=== PATIENT | female | born 1960 | race Caucasian/White ===

== ENCOUNTER 2017-02-03 22:36 | Emergency (ER) | payer MEDICARE ==
[2010-05-15 12:19] VITALS: BMI 27.5
== END 2017-02-04 | disposition home or self-care (01) ==
LOC: D.ER 22:36
DX: M54.16 Radiculopathy, lumbar region (principal); F17.200 Nicotine dependence, unspecified, uncomplicated; G89.29 Other chronic pain

== ENCOUNTER 2017-06-19 17:02 | Emergency (ER) | payer MEDICARE ==
[2010-05-15 12:19] VITALS: BMI 27.5
== END 2017-06-19 18:20 | disposition home or self-care (01) ==
LOC: D.ER 17:02
DX: M54.5 Low back pain (principal); M54.16 Radiculopathy, lumbar region; G89.18 Other acute postprocedural pain; M79.652 Pain in left thigh; M79.651 Pain in right thigh; F17.200 Nicotine dependence, unspecified, uncomplicated

== ENCOUNTER 2020-02-16 11:45 | Emergency (ER) | payer MEDICARE, MEDICAID ==
[2020-02-16 11:58] VITALS: Ht 160 cm
[2020-02-16] MEDS ORDERED: PREDNISONE20 MG PO (12:23)
[2020-02-16 12:59] VITALS: BP 122/50
[2020-02-17] MEDS ORDERED: MEDROL DOSE PACK4 MG PO (15:18)
[2020-02-17] MEDS ORDERED: NEURONTIN 300300 MG PO (15:18)
== END 2020-02-16 12:59 | disposition home or self-care (01) ==
LOC: D.ER 11:45
DX: M54.5 Low back pain (principal); G89.29 Other chronic pain; I10 Essential (primary) hypertension

== ENCOUNTER 2020-02-17 13:16 | Emergency (ER) | payer MEDICARE, MEDICAID ==
[~2020-02-17] VITALS: Ht 160 cm; Wt 80.9 kg
[~2020-02-17 13:16] MED LIST: PREDNISONE20 MG PO
[2020-02-17 13:45] VITALS: Ht 160 cm; Wt 80.9 kg
[2020-02-17] MEDS ORDERED: NEURONTIN 300300 MG PO (15:18)
[2020-02-17] MEDS ORDERED: MEDROL DOSE PACK4 MG PO (15:18)
[2020-02-17 15:21] VITALS: BP 132/66
== END 2020-02-17 15:21 | disposition home or self-care (01) ==
LOC: D.ER 13:16
DX: G89.29 Other chronic pain (principal); Z76.5 Malingerer [conscious simulation]; M54.30 Sciatica, unspecified side; I10 Essential (primary) hypertension; Z72.0 Tobacco use

== ENCOUNTER 2020-02-27 17:25 | Observation (INO) | payer MEDICARE, MEDICAID ==
[~2020-02-27] VITALS: Ht 152.4 cm; Wt 79.5 kg
--- NOTE | ~2020-02-27 | HEMODYNAMI ---
PATIENT:CAROLA MEDEROS MEDICAL RECORD: [id number] : 60 LOCATION:[address] [id number] ADMISSION DATE: 02/27/20 Generatedon:02/28/202015:18 Patient name: CAROLA MEDEROS Patient #: [id number] : 1960 Date of study: 02/28/2020 Page: Of Hemodynamic Procedure Report Patient Data Patient Demographics Procedure consent was obtained First Name: CAROLA Gender: Female Last Name: ROSA M : 1960 Middle Initial: R Age: 60 year(s) Patient #: [id number] Race: Unknown SSN: [id number] Additional ID: [id number] Contact details Address: [address] [place] [address] street State: [place] City: [facility] Zip code: [address] Past Medical History Allergies: No known allergies Admission Admission Data Admission Date: 02/27/2020 Admission Time: 22:30 Arrival Date: 02/28/2020 Arrival Time: 0:00 Admit Source: Other Insurance Payor: Medicare, Room #: D.2120 Medicaid HIC #: [id number] Height (in.): 59.84 BSA: 1.76 (m2) Height (cm.): 152 BMI: 34.19 (kg/m2) Weight (lbs.): 174.17 Weight (kg.): 79 Lab Results Lab Result Date: 02/28/2020 Lab Result Time: 0:00 Biochemistry Name Units Result Min Max BUN mg/dl 22 --(----)-* 7 18 Creatinine mg/dl 1 --(--*-)-- 0.6 1.3 eGFR ml/min 60 *-(----)-- 90 120 NONAFRICAN CBC Name Units Result Min Max Hemoglobin g/dl 11.8 *-(----)-- 13.5 17.5 Procedure Procedure Types Cath Procedure Diagnostic Procedure C LHC w/Coronaries Sedation Charges Moderate Sedation up to 30 minutes PCI Procedure Coronary Stent Coronary Stent Initial Hemochron ACT Test Procedure Description Procedure Date Procedure Date: 02/28/2020 Procedure Start Time: 14:50 Procedure End Time: 15:15 Procedure Staff Name Function Robert Jacques MD Performing Physician Ruth Macedo RT Monitor Angelique Amezquita RN Nurse Sophia Fernando RT Scrub Procedure Data Cath Procedure Fluoroscopy Diagnostic fluoroscopy Total fluoroscopy Time: 5 time: 5 min min Diagnostic fluoroscopy Total fluoroscopy dose: 541 dose: 541 mGy mGy Contrast Material Contrast Material Type Amount (ml) Isovue 300 105 Entry Location Entry Primary Successful Side Size Upsize Upsize Entry Closure Succes sful Closure Location (Fr) 1 (Fr) 2 (Fr) Remarks Device Remarks Femoral Right 5 Fr 6 Fr artery Short Estimated blood loss: 10 ml Diagnostic catheters Device Type Used For End Catheter Placement MULTIPACK JL 4.0 5Fr Procedure catheter MULTIPACK 3DRC 5Fr Procedure catheter MULTIPACK Pigtail 5 Fr Ventriculography catheter Procedure Complications No complications Procedure Medications Medication Administration Route Dosage 0.9% NaCl I.V. 100 ml/hr Oxygen etCO2 Nasal cannula 2 l/min Lidocaine 2% added to field 20 Heparin Flush Bag added to field 2 bags (1000units/500ml NS) Versed I.V. 2 mg Fentanyl I.V. 50 mcg Versed I.V. 2 mg Fentanyl I.V. 50 mcg Ativan 2 mg Versed I.V. 2 mg Fentanyl I.V. 50 mcg Heparin Bolus I.V. 5000 units Integrilin (Bolus I.V. 7.3 ml 2mg/ml) Integrilin (Bolus wasted 2.7 ml 2mg/ml) Plavix P.O. 600 mg Hemodynamics Rest BSA: 1.76 (m2) HGB: 11.8 (g/dl) O2 Consumption: Estimated: 181.2 (ml/min) O2 Con sumption indexed: Estimated:102.95 (ml/min/m) Heart Rate: 92 (bpm) Pressure Samples Time Site Value (mmHg) Purpose Heart Use Rate(bpm) 14:56 LV 124/16,20 Snapshot 97 Gradients Valve Time Site Site Mean SEP/DFP Peak To Heart Use 1 2 (mmHg) (sec/min) Peak Rate (mmHg) (bpm) Aortic 14:56 LV AO 92 Snapshots Pre Cath Intra NCS Post Cath Vital Signs Time Heart Resp SPO2 etCO2 NIBP (mmHg) Rhythm Pain Sedation Rate (ipm) (%) (mmHg) Status Level (bpm) 14:44:15 91 11 100 26.9 Measuring NSR 0 (11) 10(A) , No pain 14:44:19 90 11 100 29.1 152/112(149) NSR 0 (11) 10(A) , No pain 14:48:47 98 13 96 32.8 135/116(132) NSR 0 (11) 10(A) , No pain 14:53:10 89 10 96 31.3 138/105(137) NSR 0 (11) 10(A) , No pain 14:57:34 91 12 98 49.3 134/87(113) NSR 0 (11) 10(A) , No pain 15:02:33 93 11 98 49.2 Measuring NSR 0 (11) 10(A) , No pain 15:03:24 93 10 99 45.5 115/87(104) NSR 0 (11) 10(A) , No pain 15:08:23 90 11 98 30.6 Measuring NSR 0 (11) 10(A) , No pain 15:08:35 86 13 99 30.6 123/85(101) NSR 0 (11) 10(A) , No pain 15:12:58 96 12 98 49.2 126/86(110) NSR 0 (11) 10(A) , No pain Medications Time Medication Route Dose Verified Delivered Reason Notes Effectiveness by by 14:41:42 Fentanyl I.V. 50 Robert Angelique for sedation mcg St Jerry Amezquita MD RN 14:42:22 Versed I.V. 2 mg Robert Angelique for sedation [facility] Jerry Amezquita MD RN 14:46:36 0.9% NaCl I.V. 100 Robert Angelique used for ml/hr [facility] Jerry Amezquita procedure MD GRIGGS 14:46:41 Oxygen etCO2 2 Robert Angelique used for Nasal l/min [facility] Jerry Amezquita procedure cannula MD GRIGGS 14:46:46 Lidocaine 2% added 20ml Robert Jones for local to vial [facility] anesthetic field MD WOODS 14:46:50 Heparin Flush added 2 Robert Jones used for Bag to bags [facility] procedure (1000units/500ml field MD WOODS NS) 14:47:51 Versed I.V. 2 mg Robert Angelique for sedation [facility] Jerry Amezquita MD, RN 14:47:58 Fentanyl I.V. 50 Robert Angelique for sedation mcg [facility] Jerry Amezquita MD, RN 14:53:08 Ativan I.V.P 2 mg Robert Angelique for sedation [facility] Jerry Amezquita MD, RN 15:00:39 Versed I.V. 2 mg Robert Angelique for sedation [facility] Jerry Amezquita MD, RN 15:00:42 Fentanyl I.V. 50 Robert Angelique for sedation mcg St Jerry Amezquita MD, RN 15:01:00 Heparin Bolus I.V. 5000 Robert Angelique for verif ied units [facility] anticoagulation with Dr. MD GRIGGS Ruffin 15:01:21 Integrilin I.V. 7.3 Robert Angelique for (Bolus 2mg/ml) ml St Jerry Amezquita antiplatelet RN therapy 15:01:34 Integrilin wasted 2.7 Robert Albayla for (Bolus 2mg/ml) ml [facility] Jerry Amezquita antiplatelet RN therapy 15:01:42 Plavix P.O. [address]ique for mg [facility] Jerry Amezquita antiplatelet RN therapy Procedure Log Time Note 14:10:27 Informed consent obtained and on chart 14:11:07 Procedure Status Urgent Heart Cath (IP). 14:11:11 Time tracking: Regular hours (M-F 7:00 - 5:00) 14:11:16 Plan of Care:Hemodynamics will remain stable., Cardiac rhythm will remain stable., Comfort level will be maintained., Respiratory function will remain adequate., Patient/ family verbilizes understanding of procedure., Procedure tolerated without complication., Recovers from procedure without complications.. 14:11:21 H&P Date Dictated: 02/28/2020 Within 30 days and on chart.. 14:17:41 Sophia HOFFMANN(R) (CV) sent for patient. Start room use. 14:22:32 Arrival Date: 02/28/2020 12:00:00 AM 14:22:56 Admit Source: Other 14:23:00 Insurance Payor : Medicare, Medicaid 14:23:13 Patient Height : 59.84 inches 14:23:16 Patient Weight : 174.17 lbs 14:23:46 Lab Result : eGFR NONAFRICAN 60 ml/min 14:23:46 Lab Result : Hemoglobin 11.8 g/dl 14:23:46 Lab Result : BUN 22 mg/dl 14:23:46 Lab Result : Creatinine 1 mg/dl 14:24:36 Diagnostic Cath Status : Urgent 14:25:21 Patient received from Med II to CCL 1 Alert and oriented. Tansferred to table in Supine position. 14:25:25 Warm blankets applied, and ryan hugger turned on for patient comfort. 14:25:30 Correct patient and procedure confirmed by team. 14:36:02 ECG and BP/O2 sat monitors applied to patient. 14:36:03 Vital chart was started 14:36:04 Baseline sample Acquired. 14:36:07 Full Disclosure recording started 14:36:18 H&P Date Dictated: 02/27/2020 Within 30 days and on chart.. 14:36:19 Pre-procedure instructions explained to patient. 14:36:22 Family unavailable. 14:36:24 Patient NPO since Midnight. 14:36:33 Patient allergic to No known allergies 14:36:36 Is the patient allergic to Iodine/contrast media? No. 14:36:37 Was the patient premedicated? Yes 14:36:39 Is patient on blood thinner?No 14:36:40 Patient diabetic? No. 14:36:48 Snore? Unknown 14:36:50 Sleep apnea? No 14:36:56 Airway obstruction? Unknown ? 14:37:01 Dentures? Yes out 14:37:05 Patient pain scale 0/10 ?. 14:37:20 IV patent on arrival in right forearm with 0.9% NaCl at KVO. 14:37:34 IV left forearm D/C'd due to infiltration. 14:37:59 IV started by Angelique Amezquita RN inleft forearm with a 20 gauge IV catheter with 0.9% NaCl at KVO. 14:38:03 Lab results completed and on chart. 14:38:09 Right groin area was prepped with chlora-prep and draped in sterile fashion 14:38:11 Alarms reviewed by R. N. 14:38:11 Sharps counted by scrub and verified by R.N. 14:41:42 Fentanyl 50 mcg I.V. was administered by Angelique Amezquita RN; for sedation; Verbal order read back and verified. 14:42:01 Physician arrived 14:42:01 --------ALL STOP TIME OUT------ 14:42:02 Final Timeout: patient, procedure, and site verified with staff and physician. All members of the team are in agreement. 14:42:04 Right groin site verified by team. 14:42:08 Fire Safety Assessment: A--An alcohol-based skin anteseptic being used preoperatively., C--Open oxygen or nitrous oxide is being used., D--An ESU, laser, or fiber-optic light is being used. 14:42:12 Physical assessment completed. ASA score P 2 - A patient with mild systemic disease as per Robert Jacques MD. 14:42:16 2) 60-89 Mildly reduced kidney function, and other findings (as for stage 1) point to kidney disease. 14:42:21 Maximum allowable contrast dose (3.7 X eGFR X 0.75)166 ml. 14:42:22 Versed 2 mg I.V. was administered by Angelique Amezquita RN; for sedation; Verbal order read back and verified. 14:42:26 Sedation plan: IV Moderate Sedation Medication:Versed, Fentanyl 14:42:30 Use device set Femoral Dx 14:42:32 ACIST Syringe (00927) opened to sterile field. 14:42:32 Bag Decanter (2002S) opened to sterile field. 14:42:33 Medline Cath Pack ([id number]) opened to sterile field. 14:42:34 ACIST Hand Control (57427) opened to sterile field. 14:42:35 ACIST Manifold (35095) opened to sterile field. 14:42:36 DIAGNOSTIC Multipack 5Fr catheter set ([id number]) opened to sterile field. 14:42:36 Tegaderm 4 x 4 (1626W) opened to sterile field. 14:42:38 SHEATH 5FR Freehold (JFH224) opened to sterile field. 14:42:38 EMERALD Guide Wire (320-686) opened to sterile field. 14:46:36 0.9% NaCl 100 ml/hr I.V. was administered by Angelique Amezquita RN; used for procedure; Verbal order read back and verified. 14:46:41 Oxygen 2 l/min etCO2 Nasal cannula was administered by Angelique Amezquita RN; used for procedure; Verbal order read back and verified. 14:46:46 Lidocaine 2% 20ml vial added to field was administered by Robert Jacques MD; for local anesthetic; Verbal order read back and verified. 14:46:50 Heparin Flush Bag (1000units/500ml NS) 2 bags added to field was administered by Robert Jacques MD; used for procedure; Verbal order read back and verified. 14:47:51 Versed 2 mg I.V. was administered by Angelique Amezquita RN; for sedation; Verbal order read back and verified. 14:47:58 Fentanyl 50 mcg I.V. was administered by Angelique Amezquita RN; for sedation; Verbal order read back and verified. 14:49:53 Procedure started 14:50:04 Local anesthetic to right femoral artery with Lidocaine 2% by Robert Jcaques MD.INITIAL ACCESS ONLY 14:50:13 A 5 Fr sheath was inserted into the Right Femoral artery 14:50:18 J wire advanced. 14:51:15 A MULTIPACK JL 4.0 5Fr catheter was advanced over the wire and used for Procedure. 14:51:21 LCA angiography performed. 14:53:08 Ativan 2 mg I.V.P was administered by Angelique Amezquita RN; for sedation; Verbal order read back and verified. 14:54:46 A MULTIPACK 3DRC 5Fr catheter was advanced over the wire and used for Procedure. 14:55:13 RCA angiography performed. 14:56:02 Catheter removed. 14:56:08 A MULTIPACK Pigtail 5 Fr catheter was advanced over the wire and used for Ventriculography. 14:56:12 LV angiography performed. 14:56:47 EF : 55 % 14:57:00 GUIDE 6FR HS I SH catheter ([id number]) opened to sterile field. 14:57:00 WHISPER 300cm guide wire ([id number]) opened to sterile field. 14:57:01 INFLATOR Merit BasixCompak (IQ2350) opened to sterile field. 14:57:02 SHEATH 6FR Freehold (RFH521) opened to sterile field. 14:57:08 Proceeding to intervention. 14:57:17 Sheath upsized to a 6 Fr Short. 14:57:35 Pre PCI Site: [place] mRCA has 95% stenosis. 14:57:42 6 Fr hs SH guide catheter was inserted over the wire 15:00:39 Versed 2 mg I.V. was administered by Angelique Amezquita RN; for sedation; Verbal order read back and verified. 15:00:42 Fentanyl 50 mcg I.V. was administered by Angelique Amezquita RN; for sedation; Verbal order read back and verified. 15:00:50 whisper wire advanced. 15:01:00 Heparin Bolus 5000 units I.V. was administered by Angelique Amezquita RN; for anticoagulation; verified with Dr. Carlin Verbal order read back and verified. 15:01:21 Integrilin (Bolus 2mg/ml) 7.3 ml I.V. was administered by Angelique Amezquita RN; for antiplatelet therapy; Verbal order read back and verified. 15:01:34 Integrilin (Bolus 2mg/ml) 2.7 ml wasted was administered by Angelique Amezquita RN; for antiplatelet therapy; Verbal order read back and verified. 15:01:42 Plavix 600 mg P.O. was administered by Angelique Amezquita RN; for antiplatelet therapy; Verbal order read back and verified. 15:04:21 Inflate balloon Inflation number: 1 A EUPHORA 2.0 x 15 Balloon ([id number]) was prepped and advanced across the Mid RCA 95, then inflated to 12 JENNIFER for 1:15 (min:sec) 0. 15:04:48 multiple inflations to 12 15:05:32 Balloon removed over the wire. 15:08:36 Place stent Inflation Number: 1 A AALIYAH OTW 2.5 x 38 stent ([id number]) was prepped and advanced across the Mid RCA1 95. The stent was deployed at 14 JENNIFER for 0:35 (min:sec) . 15:11:31 Wire removed. 15:11:32 Guide catheter removed. 15:11:48 EXOSEAL 6Fr (EX600) opened to sterile field. 15:11:52 Procedure ended.(Physican Out) 15:12:10 Fluoroscopy time 05.00 minutes. 15:12:16 Flurop Dose total: 541 15:12:16 Fluoroscopy dose: 541 mGy 15:12: Dose Area Product 33548 mGy/cm. 15:12:29 Contrast amount:Isovue 300 105ml. 15:12:31 Maximum allowable dose exceeded? No. 15:12:33 Sharps counted by scrub and verified by R.N. 15:12:38 Insertion/operative site no bleeding no hematoma. 15:12:45 Post-op/insertion site Right Femoral artery dressed using a 4 x 4 and Tegaderm. 15:12:48 Post right femoral artery:stable 15:12:53 Post Procedure Pulses reassessed and unchanged 15:12:57 Post-procedure physical assessment completed. ASA score P 3 - A patient with severe systemic disease as per Robert Jacques MD. 15:13:01 Post procedure rhythm: sinus rhythm 15:13:05 Estimated blood loss: 10 ml 15:13:07 Post procedure instruction explained to patient.Patient verbalizes understanding. 15:15:05 Procedure type changed to Cath procedure, Diagnostic procedure, LHC, LHC w/Coronaries, Sedation Charges, Moderate Sedation up to 30 minutes, PCI procedure, Coronary Stent, Coronary Stent Initial, Hemochron ACT Test 15:15:06 Procedure and supply charges have been captured, reviewed, submitted and are correct. 15:15:17 ACT drawn and resulted at 232 seconds. (normal therapeutic range 180-240 seconds). 15:15:30 Procedure Complication : No complications 15:15:33 Vital chart was stopped 15:15:37 [facility] Findings: mild to moderate CAD (<70%) 15:15:39 Operative report dictated upon procedure completion. 15:15:49 See physician's report for complete and final results. 15:15:53 Patient transfered to [facility] with Bed. 15:15:55 Procedure ended. 15:15:55 Full Disclosure recording stopped 15:16:03 End room use (Document Last) 15:16:07 ACC-PCI Only Patient was given prescriptions, or instructed by Robert Jacques MD to start/continue the following medications upon discharge: Plavix Intervention Summary Intervention Notes Time ActionType Lesion and Equipment Action# Pressure Duration Attributes Used 15:04:21 Inflate Mid RCA EUPHORA 2.0 x 1 12 01:15 balloon 15 Balloon ([id number]) 15:08:36 Place stent Mid RCA1 AALIYAH OTW 2.5 1 14 00:35 x 38 stent ([id number]) Device Usage Item Name Manufacture Quantity Catalog Hospital Part Current Minim al Lot# / Number Charge Number Stock Stock Serial# Code ACIST Syringe Acist 1 64225 609864 137959 724204 20 (86492) Medical Systems Inc Bag Decanter Microtek 1 2001S 483296 45921 013640 5 (2001S) Medical Inc. Medline Cath Medline 1 [id number] 720314 33881 353201 5 Pack ([id number]) ACIST Hand Acist 1 60055 107288 304753 949248 5 Control Medical (84955) Systems Inc ACIST Acist 1 59025 081385 972214 642501 5 Manifold Medical (09598) Systems Inc DIAGNOSTIC Cardinal 1 NO7556 617764 83233 609651 30 Multipack 5Fr Health catheter set (IM2882) Tegaderm 4 x 3M 1 1626W 044271 247678 835330 5 4 (1626W) SHEATH 5FR Terumo 1 BYM610 106125 309802 515145 5 Freehold (FQM880) EMERALD Guide Cardinal 1 502-455 783851 324063 047716 5 Wire Health (502-455) MULTIPACK JL Cardinal 1 308581 5 4.0 5Fr Health catheter MULTIPACK Cardinal 1 824887 5 3DRC 5Fr Health catheter MULTIPACK Cardinal 1 707609 5 Pigtail 5 Fr Health catheter GUIDE 6FR HS Medtronic 1 [id number] 507338 25504 407598 1 I SH catheter ([id number]) WHISPER 300cm Coleman 1 [id number] 924901 583723 091431 5 guide wire Vascular ([id number]) INFLATOR Merit 1 HG1358 445654 640577 727706 15 [facility] Medical BasixCompak (OV8851) SHEATH 6FR Terumo 1 RQK906 154229 243273 043801 40 Freehold (OXC599) EUPHORA 2.0 x Medtronic 1 [id number] 784645 849628 177957 5 [id number] 15 Balloon ([id number]) AALIYAH OTW 2.5 Medtronic 1 [id number] 625776 79778 697190 5 [id number] x 38 stent ([id number]) EXOSEAL 6Fr Cardinal 1 EX600 833698 357926 621713 10 (EX600) Health Signature Audit [place] Stage Time Signature Unsigned Intra-Procedure 02/28/2020 Ruth Macedo 3:17:33 PM RT(R) Intra-Procedure 02/28/2020 Angelique Amezquita 3:17:53 PM RN Intra-Procedure 02/28/2020 Robert Cabrera 3:18:34 PM Jerry WOODS [facility] [address] [place] [address]
[~2020-02-27 17:25] MED LIST changes: +MEDROL DOSE PACK4 MG PO; +NEURONTIN 300300 MG PO
[2020-02-27 17:46] VITALS: BP 110/77
[2020-02-27 18:22] VITALS: BP 121/75
[2020-02-27 18:49] LABS: BASOPHILS 0.4 % (0-2); EOSINOPHILS 0.4 % (0-7); HEMATOCRIT 39.5 % (36.0-48.0); HEMOGLOBIN 12.9 g/dL (12-16); IMMATURE GRANULOCYTES 0.3 % (0-5); LYMPHOCYTES 10.3 % (15-50); MCH 30.9 pg (26.0-34.0); MCHC 32.7 g/dL (31.0-37.0); MCV 94.7 fL (80.0-100.0); MEAN PLATELET VOLUME 8.9 fL (7.4-10.4); MONOCYTES 1.2 % (2-11); NEUTROPHILS 87.4 % (40-80); PLATELET COUNT 215 10x3/uL (130-400); RBC 4.17 10x6/uL (4.00-5.40); RDW 14.5 % (11.5-14.5); WBC 6.8 10x3/uL (4.8-10.8)
[2020-02-27 18:59] LABS: APTT 30.4 SECONDS (22.8-39.4); INR 0.94 (0.85-1.17); PROTIME 12.5 SECONDS (11.6-15.0)
[2020-02-27 19:18] LABS: CALC OSMOLALITY 290 mosm/kg (275-300); CALCIUM 9.2 mg/dL (8.5-10.1); CHLORIDE - SERUM 106 mmol/L (98-107); CREATININE - SERUM 1.2 mg/dL (0.6-1.3); GLUCOSE 139 mg/dL (74-106); POTASSIUM - SERUM 5.3 mmol/L (3.5-5.1); SODIUM 143 mmol/L (136-145); UREA NITROGEN 24 mg/dL (7-18); eGFR NON AFRICAN AMERICAN 48 mL/min (90-120)
[2020-02-27 19:33] LABS: ALBUMIN 3.7 g/dL (3.4-5.0); ALKALINE PHOSPHATASE 72 U/L (30-120); ALT (SGPT) 48 U/L (10-68); BILIRUBIN - TOTAL 0.29 mg/dL (0.2-1.3); CKMB 0.9 U/L (0.0-3.6); CREATINE KINASE 67 UL (21-215); MAGNESIUM - SERUM 2.3 mg/dL (1.8-2.4); PROTEIN - SERUM 7.2 g/dL (6.4-8.2)
[2020-02-27 19:34] LABS: TROPONIN-I < 0.017 ng/mL (0.000-0.060)
[2020-02-27 23:51] LABS: UDS - AMPHET NEGATIVE QUAL (NEGATIVE); UDS - BARB NEGATIVE QUAL (NEGATIVE); UDS - BENZO POSITIVE QUAL (NEGATIVE); UDS - COCAINE NEGATIVE QUAL (NEGATIVE); UDS - OPIATE POSITIVE QUAL (NEGATIVE); UDS - PCP NEGATIVE QUAL (NEGATIVE); UDS - THC NEGATIVE QUAL (NEGATIVE)
[2020-02-27 23:57] LABS: BILIRUBIN NEGATIVE (NEGATIVE); GLUCOSE 50 mg/dL (NEGATIVE); KETONE NEGATIVE (NEGATIVE); NITRITE NEGATIVE (NEGATIVE); UROBILINOGEN NORMAL (NORMAL)
[2020-02-27 23:58] LABS: BACTERIA NONE SEEN /hpf (NEGATIVE); EPITHELIAL CELLS 0-5 /hpf (0-5); RED CELLS - URINE 0-5 /hpf (0-5); WHITE CELLS - URINE NSEEN /hpf (NEGATIVE)
[2020-02-28] VITALS: BP 123/73
[2020-02-28 00:04] LABS: CKMB 0.9 U/L (0.0-3.6); CREATINE KINASE 67 UL (21-215); TROPONIN-I < 0.017 ng/mL (0.000-0.060)
[2020-02-28] MEDS ORDERED: XANAX0.5 MG PO (00:14)
[2020-02-28 00:20] VITALS: BP 123/73; Ht 152.4 cm; Wt 79.5 kg
--- NOTE | 2020-02-28 00:37 | NUR ---
PATIENT ARRIVED TO FLOOR VIA WHEELCHAIR. PATIENT APPEARS VERY ANXIOUS. PATIENT IS ALERT AND ORIENTED, WALKING AROUND ROOM AT THIS TIME. NO S/S OF DISTRESS. NO C/O PAIN. CALL LIGHT WITHIN REACH. WILL CPOC. WHEN ATTEMPTING TO COMPLETE MED REC. PATIENT STATED, "SHE DID NOT KNOW ALL HER MEDS EXACTLY." WE ARE TO CALL HER IN AM HE HAS ALL HER PILL BOTTLES. WILL PASS ALONG TO AM SHIFT.
[2020-02-28 06:56] LABS: CKMB 1.1 U/L (0.0-3.6); CREATINE KINASE 59 UL (21-215); TROPONIN-I < 0.017 ng/mL (0.000-0.060)
--- NOTE | 2020-02-28 07:12 | NUR ---
PT COMES OUT OF THE ROOM SCREAMING STATING THAT SHE WAS WRITING US UP FOR BEING RUDE AND INCONSIDERATE RIGHT AFTER I GAVE HER A MASK FROM MY OWN COLLECTION SO THAT SHE COULD WALK AROUND THE GRAVES. PT CAME UP TO MY FACE POINTING SAYING THAT SHE WOULD BE WRITING ME AND THE NIGHT NURSES UP FOR BEING RUDE. I HAD NOT SPOKEN TO THE PATIENT R/T STILL GETTING REPORT FROM [facility]. ATTEMPTED TO REASSURE THE PATIENT THAT I WAS NOT IN FACT BEING RUDE BUT SIMPLY WATCHING OUT FOR HER SAFETY(AFTER I PRESENTED HER WITH THE MASK). PT WENT BACK INTO HER ROOM AND SLAMMED THE DOOR STATING SHE WAS CALLING ADMINISTRATION. NOTIFIED SUPERVISOR CELL ROOM. THIS WAS TAKEN PLACE IN FRONT OF NIGHT NURSE FA[place], AND AGUSTINA. WILL CTM.
[2020-02-28 08:00] VITALS: BP 108/77
[2020-02-28 08:41] LABS: BASOPHILS 0.4 % (0-2); EOSINOPHILS 0.8 % (0-7); HEMATOCRIT 36.6 % (36.0-48.0); HEMOGLOBIN 11.8 g/dL (12-16); IMMATURE GRANULOCYTES 0.2 % (0-5); LYMPHOCYTES 26.4 % (15-50); MCH 30.7 pg (26.0-34.0); MCHC 32.2 g/dL (31.0-37.0); MCV 95.3 fL (80.0-100.0); MONOCYTES 10.1 % (2-11); NEUTROPHILS 62.1 % (40-80); PLATELET COUNT 201 10x3/uL (130-400); RBC 3.84 10x6/uL (4.00-5.40); RDW 14.8 % (11.5-14.5)
[2020-02-28 08:42] LABS: WBC 4.8 10x3/uL (4.8-10.8)
[2020-02-28 08:51] LABS: CALCIUM 8.9 mg/dL (8.5-10.1); CARBON DIOXIDE 25.5 mmol/L (21.0-32.0); CHOL - HDL RATIO 3.1 ratio (2.3-4.1); LDL-HDL RATIO 1.7 ratio (1.5-3.5)
[2020-02-28 08:55] LABS: POTASSIUM - SERUM 4.5 mmol/L (3.5-5.1)
[2020-02-28] MEDS ORDERED: DURAGESIC1 EAC4 TOPICAL (10:01)
[2020-02-28] MEDS ORDERED: ELIQUIS5 MG PO (10:02)
[2020-02-28] MEDS ORDERED: TEMAZEPAM30 MG PO (10:02)
[2020-02-28] MEDS ORDERED: VITAMIN D2 PO (10:03)
[2020-02-28] MEDS ORDERED: COREG6.25 MG PO (10:04)
[2020-02-28] MEDS ORDERED: MAG-OX 400 MG400 MG PO (10:04)
[2020-02-28] MEDS ORDERED: PREVACID30 MG PO (10:04)
[2020-02-28] MEDS ORDERED: K-TAB10 MEQ PO (10:05)
--- NOTE | 2020-02-28 10:06 | NUR ---
SPOKE WITH [facility] WHO FAXED AN UPDATED MED LIST. MED REQ UPDATED. WILL CTM.
[2020-02-28 11:00] VITALS: BP 125/82
[2020-02-28 15:00] VITALS: BP 131/80
--- NOTE | 2020-02-28 15:51 | NUR ---
PT RETURN FROM AIRPLANE NAVIGATOR. RIGHT FEMORAL SITE IS C/D/I WITH NO S/S OF HEMATOMA PRESENT. NS INFUSING @100ML/HR. NO S/S OF DISTRESS NOTED. WILL CTM. TELEMETRY APPLIED.
--- NOTE | 2020-02-28 16:21 | NUR ---
PT STATES THAT SHE PULLED UP IN BED TO PUT NEW GOWN ON. CHECKED RIGHT GROIN SITE AND NO S/S OF HEMATOMA PRESENT. WILL CTM. INSTRUCTED PT ON IMPORTANCE OF KEEP LEGS STRAIGHT AND NOT BENDING AT THE WAIST.
[2020-02-28 18:31] VITALS: BP 120/75
--- NOTE | 2020-03-03 11:44 | OP ---
PATIENT NAME: CAROLA MEDEROS MEDICAL RECORD: [id number] :60 LOCATION:D.M2 D.2120 ADMISSION DATE:02/27/20 SURGEON: ISA GARCIA MD DATE OF OPERATION: 02/28/2020 PROCEDURE: Left heart catheterization, selective coronary angiography, right femoral artery approach. CATHETERS: A 5-Japanese sheath, 5/4 left and right Sunny, 5/4 pig. The procedure was well tolerated and the patient returned to frias. Sheath removed. ExoSeal device was placed. FINDINGS: Left ventriculography in 30-degree NAVAS view: Normal wall motion. Normal systolic function. CORONARY ANATOMY: LEFT MAIN: Free of disease. LAD: Free of disease in the diagonal system. CIRCUMFLEX: Free of disease in the marginal system. RIGHT CORONARY ARTERY: Basically subtotaled in its mid portion with severe diffuse disease otherwise, obviously culprit artery. PLAN: Intervention momentarily. DESCRIPTION OF PROCEDURE: A 5-Japanese sheath was exchanged for a 6-Japanese sheath. A hockey stick with side holes provided excellent guide catheter support followed by 300 cm Whisper wire, which was placed across the severely diffusely diseased greatest in 95% right coronary. Pre-deployment balloon was a 2.0 x 15 mm balloon, which was placed up and down the area pre-deployment. Next, stent placed was a 2.5 x 38 mm Isaac drug-eluting stent up to 14 atmospheres. Final angiography shows excellent resolution of a severe diffuse stenosis 95% or better. No significant residual. ROBE flow was 3 throughout the procedure. Heparin and Integrilin were used during the case. Excellent plumping of the distal vasculature as well. Plavix was loaded in the lab. NTS:[id number] Voice Confirmation ID: [id number] DOCUMENT ID: [id number] ISA GARCIA MD at 1144 CC: [id number] DICTATION DATE: 02/28/20 1530 ANALYSIS MGR: 02/29/20 0155 DIS IN 02/28/20 [facility] [address] [place] [address]
== END 2020-02-28 21:02 | disposition home or self-care (01) ==
LOC: D.ER 17:25 → OBSVTIME 22:30 → D.M2 22:30
PROVIDERS: Emergency Medicine; Family Medicine; Internal Medicine Interventional Cardiology; ADMIT Legal Medicine; ATTEND Legal Medicine
DX: I20.9 Angina pectoris, unspecified (principal); I10 Essential (primary) hypertension; F17.200 Nicotine dependence, unspecified, uncomplicated; E87.5 Hyperkalemia; R07.9 Chest pain, unspecified
CPT/HCPCS: 93458; C9600